=== PATIENT | male | born 1980 | race African-American/Black ===

== ENCOUNTER 2022-01-18 11:43 | Outpatient (CLI) | payer OTHER ==
[~2022-01-18 11:43] MED LIST: ACET-689 PO; LORA10TA3 PO; TOBRAMYCIN0.3 % OP; TRIM800T12 PO
[2022-01-18 12:07] LABS: PLATELET COUNT 297 K/uL (142-355)
[2022-01-18 12:11] LABS: POTASSIUM 4.2 mmol/L (3.6-5.2)
== END 2022-01-18 19:22 | disposition home or self-care (01) ==
LOC: LABW 11:43
PROVIDERS: ATTEND Family Medicine
DX: R10.9 Unspecified abdominal pain (principal); K21.9 Gastro-esophageal reflux disease without esophagitis
CPT/HCPCS: 36415; 80053; 83690; 85027

== ENCOUNTER 2022-02-16 11:25 | Outpatient (CLI) | payer OTHER | END 2022-02-16 20:00 | disposition home or self-care (01) | LOC: CT 11:25 | PROVIDERS: ATTEND Family Medicine | DX: R10.9 Unspecified abdominal pain (principal) | CPT/HCPCS: Q9963 ==

== ENCOUNTER 2023-06-07 20:23 | Emergency (ER) | payer OTHER ==
[~2023-06-07] VITALS: Ht 165.1 cm; Wt 79.4 kg
[2023-06-07 20:23] VITALS: BP 125/73; TEMP 98.6
[2023-06-07 21:38] LABS: PLATELET COUNT 353 K/uL (142-355)
[2023-06-07 21:40] LABS: POTASSIUM 2.7 mmol/L (3.6-5.2)
== END 2023-06-07 22:21 | disposition home or self-care (01) ==
LOC: ED 20:23
PROVIDERS: Family Medicine
DX: T14.8XXA Other injury of unspecified body region, initial encounter (principal); Y04.8XXA Assault by other bodily force, initial encounter; K76.0 Fatty (change of) liver, not elsewhere classified
CPT/HCPCS: 80053; 80320; 85027; 96372; 99283; J1885; J2360